=== PATIENT | female | born 1950 | race Caucasian/White ===

== ENCOUNTER 2017-05-04 13:50 | Emergency (ER) | payer OTHER, BC ==
[~2017-05-04] VITALS: Ht 154.9 cm; Wt 77.0 kg
[2017-05-04 15:07] LABS: HEMATOCRIT 42.7 % (36.0-46.0); MCH 29.9 PG (29.0-34.0); MCHC 34.4 G/DL (30.0-36.0); PLATELET COUNT 232 K/uL (156-360); RBC DIS.WIDTH-CV 12.4 % (11.8-14.6); RBC DIS.WIDTH-SD 38.9 % (39-53); RED BLOOD COUNT 4.91 M/uL (3.80-5.20); WHITE BLOOD COUNT 7.1 K/uL (4.1-10.2)
[2017-05-04 15:18] LABS: CHLORIDE 109 mEq/L (99-109); POTASSIUM 3.9 mEq/L (3.7-5.4); SODIUM 144 mEq/L (136-147)
[2017-05-04 15:20] LABS: GLUCOSE 118 mg/dL (70-99)
[2017-05-04 15:21] LABS: ANION GAP 14 MEQ/L (2-14)
[2017-05-04 15:24] LABS: GFR ESTIMATE (CALCULATED) > 59 mL/min/; UREA NITROGEN (BUN) 12 mg/dL (9-23)
[2017-05-04 18:02] LABS: CREATINE KINASE 162 IU/L (1-294)
[2017-05-04 18:25] LABS: ADD MIUA? NO; BILIRUBIN NEGATIVE; BLOOD NEGATIVE; COLOR STRAW ((YELLOW)); GLUCOSE (STRIP) NEGATIVE; KETONES 5; LEUKOCYTES NEGATIVE; NITRITE NEGATIVE; PROTEIN (STRIP) NEGATIVE; SPECIFIC GRAVITY 1.004 (1.000-1.030); UROBILINOGEN 0.2 MG/DL (0.2-1.0)
[2017-05-04] MEDS ORDERED: VALIUM5 MG PO (22:00)
[2017-05-04] MEDS ORDERED: FIORICET 50-301 EAC1 PO (22:01)
[2017-05-04 22:16] VITALS: BP 138/106
== END 2017-05-04 22:16 | disposition home or self-care (01) ==
LOC: EME 13:50
PROVIDERS: Physician Assistant
DX: I95.1 Orthostatic hypotension (principal); R51 Headache; E86.0 Dehydration; G89.29 Other chronic pain; M25.552 Pain in left hip; I49.3 Ventricular premature depolarization; R91.8 Other nonspecific abnormal finding of lung field; I10 Essential (primary) hypertension
CPT/HCPCS: 70450; 71020; 80048; 81003; 82550; 85027; 93005; 99281; 99285; J3010